=== PATIENT | female | born 1985 | race Two or more races ===

== ENCOUNTER 2022-07-12 06:14 | Inpatient (IN) | payer OTHER ==
[~2022-07-12] VITALS: Ht 152.4 cm; Wt 2.3 kg
[2022-07-12] MEDS ORDERED: ECOTRIN81 MG PO (06:49)
[2022-07-12] MEDS ORDERED: PRENATAL CAPLE1 EAC1 PO (06:49)
[2022-07-12] MEDS ORDERED: CONCEPT OB CAP1 EACH (11:47)
== END 2022-07-19 00:14 | disposition expired | DRG 786 ==
LOC: ICU 06:14 → LDR 06:14 → OB/GYN 11:13 → O/R 13:45 → ICU-2 23:56 → ICU 23:58
PROVIDERS: ADMIT Obstetrics & Gynecology; ATTEND Obstetrics & Gynecology
PROC: 4A1HXCZ Monitoring of Products of Conception, Cardiac Rate, External Approach (ICD-10-PCS; 2022-07-12)
PROC: 4A033R1 Measurement of Arterial Saturation, Peripheral, Percutaneous Approach (ICD-10-PCS; 2022-07-12)
PROC: B020ZZZ Computerized Tomography (CT Scan) of Brain (ICD-10-PCS; 2022-07-12)
PROC: 0BH17EZ Insertion of Endotracheal Airway into Trachea, Via Natural or Artificial Opening (ICD-10-PCS; 2022-07-12)
PROC: 5A1955Z Respiratory Ventilation, Greater than 96 Consecutive Hours (ICD-10-PCS; 2022-07-12)
PROC: 10D00Z1 Extraction of Products of Conception, Low, Open Approach (ICD-10-PCS; principal; 2022-07-12 08:30)
PROC: 02HV33Z Insertion of Infusion Device into Superior Vena Cava, Percutaneous Approach (ICD-10-PCS; 2022-07-14)
PROC: 02H633Z Insertion of Infusion Device into Right Atrium, Percutaneous Approach (ICD-10-PCS; 2022-07-15)
PROC: 3E0F7GC Introduction of Other Therapeutic Substance into Respiratory Tract, Via Natural or Artificial Opening (ICD-10-PCS; 2022-07-15)
PROC: BB24Y0Z Computerized Tomography (CT Scan) of Bilateral Lungs using Other Contrast, Unenhanced and Enhanced (ICD-10-PCS; 2022-07-16)
PROC: BW21Y0Z Computerized Tomography (CT Scan) of Abdomen and Pelvis using Other Contrast, Unenhanced and Enhanced (ICD-10-PCS; 2022-07-16)
PROC: B020ZZZ Computerized Tomography (CT Scan) of Brain (ICD-10-PCS; 2022-07-16)
PROC: B020Y0Z Computerized Tomography (CT Scan) of Brain using Other Contrast, Unenhanced and Enhanced (ICD-10-PCS; 2022-07-16)
DX: O14.14 Severe pre-eclampsia complicating childbirth (principal); O32.1XX0 Maternal care for breech presentation, not applicable or unspecified; O24.420 Gestational diabetes mellitus in childbirth, diet controlled; I61.3 Nontraumatic intracerebral hemorrhage in brain stem; J95.821 Acute postprocedural respiratory failure; J95.89 Other postprocedural complications and disorders of respiratory system, not elsewhere classified; O99.43 Diseases of the circulatory system complicating the puerperium; O15.2 Eclampsia complicating the puerperium; O99.53 Diseases of the respiratory system complicating the puerperium; Z37.0 Single live birth; Z3A.34 34 weeks gestation of pregnancy; Z20.822 Contact with and (suspected) exposure to COVID-19